=== PATIENT | female | born 1990 | race American Indian/Alaskan Native ===

== ENCOUNTER 2021-01-14 11:39 | Emergency (ER) | payer OTHER ==
[2021-01-14 12:10] VITALS: BP 131/104
--- NOTE | 2021-01-14 13:12 | Event Note ---
ED Screening Note Date of service: 01/14/21 Time: 13:10 ED Screening Note: Female presents to the ER today with complaints of nausea, vomiting, diarrhea and upper abdominal pain. She states that her symptoms have been going on since January 08. Patient states that she has had the symptoms in the past. She states that she was told that she needs to see a GI specialist but at the time she did not have any insurance. She also admits to history of alcohol abuse. She states that she drinks about a bottle and a half of wine every day. She states that she thinks that some of her symptoms are related to alcohol withdrawal. She states that she recently started a job and she has been trying to cut back on the drinking over the past couple days. She reports no seizure activity in the past few days. She denies any SI or HI. This initial assessment/diagnostic orders/clinical plan/treatment(s) is/are subject to change based on patients health status, clinical progression and re- assessment by fellow clinical providers in the ED. Further treatment and workup at subsequent clinical providers discretion. Patient/guardian urged not to elope from the ED as their condition may be serious if not clinically assessed and managed. Initial orders include: Labs
[2021-01-14 14:15] LABS: Alanine Aminotransferase 51 units/L (7-56); Albumin 5.1 g/dL (3.9-5); Blood Urea Nitrogen 10 mg/dL (7-17); Calcium 9.5 mg/dL (8.4-10.2); Hemolysis Index 3
[2021-01-14 14:17] LABS: Hematocrit 40.5 % (30.3-42.9); Mean Corpuscular HGB Conc 35 % (30-34); Mean Corpuscular Volume 86 fl (79-97); Red Blood Count 4.71 M/mm3 (3.65-5.03); Red Cell Distribution Width 13.7 % (13.2-15.2)
[2021-01-14 14:27] LABS: BUN/Creatinine Ratio 17
[2021-01-14 14:53] LABS: Platelet Count 98 K/mm3 (140-440)
[2021-01-14 15:49] LABS: Platelet Clumps Rare; RBC Morphology Normal; Total Cells Counted 100
[2021-01-14] MEDS ORDERED: LORazepam 2 MG/ML VIAL IV ONE (18:11)
[2021-01-14] MEDS ORDERED: SODIUM CHLORIDE 0.9% 1000 ML 1,000 ML IV ONE (18:11)
[2021-01-14 18:30] LABS: Bilirubin,Urine NEG (Negative); Blood,Urine NEG (Negative); Color,Urine Yellow (Yellow); Protein,Urine <15 mg/dL mg/dL (Negative)
[2021-01-14 18:38] LABS: Amphetamine Screen,Urine Negative; Benzodiazepines Screen,Urine Negative; Cannabinoid Screen,Urine Negative; Cocaine Screen,Urine Negative; Methadone Screen,Urine Negative; Opiate Screen,Urine Negative
--- NOTE | 2021-01-14 18:57 | Emergency Department Report ---
ED N/V/D HPI - General Chief complaint: Nausea/Vomiting/Diarrhea Stated complaint: NAUSEA,VOMITING LIGHT HEADED Time Seen by Provider: 01/14/21 12:58 Source: patient Mode of arrival: Ambulatory Limitations: No Limitations - History of Present Illness Initial comments: Female presents to the ER today with complaints of nausea, vomiting, diarrhea and upper abdominal pain. She states that her symptoms have been going on since January 08. Patient states that she has had the symptoms in the past. She states that she was told that she needs to see a GI specialist but at the time she did not have any insurance. She also admits to history of alcohol abuse. She states that she drinks about a bottle and a half of wine every day. She states that she thinks that some of her symptoms are related to alcohol withdrawal. She states that she recently started a job and she has been trying to cut back on the drinking over the past couple days. She reports no seizure activity in the past few days. She denies any SI or HI. MD complaint: nausea, vomiting Onset/Timin -: week(s) Description of Vomiting: food contents Location: epigastric Radiation: none Severity: moderate Quality: stabbing Consistency: intermittent Improves with: none Worsens with: eating Context: alcohol abuse Associated Symptoms: malaise, nausea/vomiting. denies: chest pain, cough, diaphoresis, fever/chills, headaches, loss of appetite, shortness of breath, syncope, weakness - Related Data Previous Rx's Medication Instructions Recorded Last Taken Type LORazepam [Ativan] 0.5 mg PO Q12H PRN #10 tablet 01/14/21 Unknown Rx Allergies Allergy/AdvReac Type Severity Reaction Status Date / Time Sulfa (Sulfonamide Allergy Hives Verified 01/14/21 12:05 Antibiotics) ED Review of Systems ROS: Stated complaint: NAUSEA,VOMITING LIGHT HEADED Other details as noted in HPI Comment: All other systems reviewed and negative ED Past Medical Hx - Past Medical History Previous Medical History?: No - Surgical History Past Surgical History?: No - Social History Smoking Status: Current Every Day Smoker Substance Use Type: Alcohol - Medications Home Medications: Home Medications Medication Instructions Recorded Confirmed Last Taken Type LORazepam [Ativan] 0.5 mg PO Q12H PRN #10 tablet 01/14/21 Unknown Rx ED Physical Exam - General Limitations: No Limitations General appearance: alert, in no apparent distress - Head Head exam: Present: atraumatic, normocephalic - Eye Eye exam: Present: normal appearance - ENT ENT exam: Present: normal exam, mucous membranes moist - Neck Neck exam: Present: normal inspection, full ROM - Respiratory Respiratory exam: Present: normal lung sounds bilaterally. Absent: chest wall tenderness, accessory muscle use - Cardiovascular Cardiovascular Exam: Present: regular rate - GI/Abdominal GI/Abdominal exam: Present: soft. Absent: distended, tenderness, guarding - Extremities Exam Extremities exam: Present: normal inspection - Back Exam Back exam: Present: normal inspection - Neurological Exam Neurological exam: Present: alert, oriented X3, normal gait - Psychiatric Psychiatric exam: Present: normal affect, normal mood - Skin Skin exam: Present: warm, dry, intact, normal color. Absent: rash ED Course Vital Signs 01/14/21 12:06 Temperature 98.2 F Pulse Rate 90 Respiratory 18 Rate Blood Pressure 131/104 O2 Sat by Pulse 98 Oximetry ED Medical Decision Making - Lab Data Result diagrams: 01/14/21 13:26 01/14/21 13:26 Laboratory Results - last 24 hr 01/14/21 01/14/21 01/14/21 13:26 13:26 13:26 WBC 2.9 L RBC 4.71 Hgb 14.0 Hct 40.5 MCV 86 MCH 30 MCHC 35 H RDW 13.7 Plt Count 98 L Baso % (Auto) Candy Maker Add Manual Diff Complete Total Counted 100 Seg Neuts % (Manual) 61.0 Lymphocytes % (Manual) 29.0 Monocytes % (Manual) 5.0 Eosinophils % (Manual) 4.0 Basophils % (Manual) 1.0 Nucleated RBC % Not Reportable Seg Neutrophils # Man 1.8 Band Neutrophils # 0.0 Lymphocytes # (Manual) 0.8 L Abs React Lymphs (Man) 0.0 Monocytes # (Manual) 0.1 Eosinophils # (Manual) 0.1 Basophils # (Manual) 0.0 Metamyelocytes # 0.0 Myelocytes # 0.0 Promyelocytes # 0.0 Blast Cells # 0.0 WBC Morphology Not Reportable Hypersegmented Neuts Not Reportable Hyposegmented Neuts Not Reportable Hypogranular Neuts Not Reportable Smudge Cells Not Reportable Toxic Granulation Not Reportable Toxic Vacuolation Not Reportable Dohle Bodies Not Reportable Pelger-Huet Anomaly Not Reportable Marcial Rods Not Reportable Platelet Estimate Not Reportable Clumped Platelets Rare Plt Clumps, EDTA Not Reportable Large Platelets Not Reportable Giant Platelets Not Reportable Platelet Satelliting Not Reportable Plt Morphology Comment Not Reportable RBC Morphology Normal Dimorphic RBCs Not Reportable Polychromasia Not Reportable Hypochromasia Not Reportable Poikilocytosis Not Reportable Anisocytosis Not Reportable Microcytosis Not Reportable Macrocytosis Not Reportable Spherocytes Not Reportable Pappenheimer Bodies Not Reportable Sickle Cells Not Reportable Target Cells Not Reportable Tear Drop Cells Not Reportable Ovalocytes Not Reportable Helmet Cells Not Reportable [place] Bodies Not Reportable [place]may Rings Not Reportable [place] Cells Not Reportable Bite Cells Not Reportable Crenated Cell Not Reportable Elliptocytes Not Reportable Acanthocytes (Spur) Not Reportable Rouleaux Not Reportable Hemoglobin C Crystals Not Reportable Schistocytes Not Reportable Malaria parasites Not Reportable Kalpesh Bodies Not Reportable Hem Pathologist Commnt No Sodium 140 Potassium 4.9 Chloride 99.6 Carbon Dioxide 23 Anion Gap 22 BUN 10 Creatinine 0.6 Estimated GFR > 60 BUN/Creatinine Ratio 17 Glucose 83 Calcium 9.5 Total Bilirubin 0.40 AST 87 H ALT 51 Alkaline Phosphatase 50 Total Protein 8.3 H Albumin 5.1 H Albumin/Globulin Ratio 1.6 HCG, Qual Urine Color Urine Turbidity Urine pH Ur Specific [place] Urine Protein Urine Glucose (UA) Urine Ketones Urine Blood Urine Nitrite Urine Bilirubin Urine Urobilinogen Ur Leukocyte Esterase Urine WBC (Auto) Urine RBC (Auto) U Epithel Cells (Auto) Urine Opiates Screen Urine Methadone Screen Ur Barbiturates Screen Ur Phencyclidine Scrn Ur Amphetamines Screen U Benzodiazepines Scrn Urine Cocaine Screen U Marijuana (THC) Screen Drugs of Abuse Note Plasma/Serum Alcohol 0.32 H 01/14/21 01/14/21 01/14/21 13:26 18:11 18:11 WBC RBC Hgb Hct MCV MCH MCHC RDW Plt Count Baso % (Auto) Add Manual Diff Total Counted Seg Neuts % (Manual) Lymphocytes % (Manual) Monocytes % (Manual) Eosinophils % (Manual) Basophils % (Manual) Nucleated RBC % Seg Neutrophils # Man Band Neutrophils # Lymphocytes # (Manual) Abs React Lymphs (Man) Monocytes # (Manual) Eosinophils # (Manual) Basophils # (Manual) Metamyelocytes # Myelocytes # Promyelocytes # Blast Cells # WBC Morphology Hypersegmented Neuts Hyposegmented Neuts Hypogranular Neuts Smudge Cells Toxic Granulation Toxic Vacuolation Dohle Bodies Pelger-Huet Anomaly Marcial Rods Platelet Estimate Clumped Platelets Plt Clumps, EDTA Large Platelets Giant Platelets Platelet Satelliting Plt Morphology Comment RBC Morphology Dimorphic RBCs Polychromasia Hypochromasia Poikilocytosis Anisocytosis Microcytosis Macrocytosis Spherocytes Pappenheimer Bodies Sickle Cells Target Cells Tear Drop Cells Ovalocytes Helmet Cells [place] Bodies Ismay Rings [place] Cells Bite Cells Crenated Cell Elliptocytes Acanthocytes (Spur) Rouleaux Hemoglobin C Crystals Schistocytes Malaria parasites Kalpesh Bodies Hem Pathologist Commnt Sodium Potassium Chloride Carbon Dioxide Anion Gap BUN Creatinine Estimated GFR BUN/Creatinine Ratio Glucose Calcium Total Bilirubin AST ALT Alkaline Phosphatase Total Protein Albumin Albumin/Globulin Ratio HCG, Qual Negative Urine Color Yellow Urine Turbidity Clear Urine pH 7.0 Ur Specific [place] 1.017 Urine Protein <15 mg/dl Urine Glucose (UA) Neg Urine Ketones Neg Urine Blood Neg Urine Nitrite Neg Urine Bilirubin Neg Urine Urobilinogen 2.0 Ur Leukocyte Esterase Tr Urine WBC (Auto) 1.0 Urine RBC (Auto) 2.0 U Epithel Cells (Auto) 3.0 Urine Opiates Screen Negative Urine Methadone Screen Negative Ur Barbiturates Screen Negative Ur Phencyclidine Scrn Negative Ur Amphetamines Screen Negative U Benzodiazepines Scrn Negative Urine Cocaine Screen Negative U Marijuana (THC) Screen Negative Drugs of Abuse Note Disclamer Plasma/Serum Alcohol - Medical Decision Making Female presents to the ER today with complaints of nausea, vomiting, diarrhea and upper abdominal pain. She states that her symptoms have been going on since January 08. Patient states that she has had the symptoms in the past. She states that she was told that she needs to see a GI specialist but at the time she did not have any insurance. She also admits to history of alcohol abuse. She states that she drinks about a bottle and a half of wine every day. She states that she thinks that some of her symptoms are related to alcohol withdrawal. She states that she recently started a job and she has been trying to cut back on the drinking over the past couple days. She reports no seizure activity in the past few days. She denies any SI or HI. Patient is interested in a detox program. Critical care attestation.: If time is entered above; I have spent that time in minutes in the direct care of this critically ill patient, excluding procedure time. ED Disposition Clinical Impression: Alcohol abuse Nausea and vomiting Qualifiers: Vomiting type: unspecified Vomiting Intractability: intractable Qualified Code(s): R11.2 - Nausea with vomiting, unspecified Disposition: DC-01 TO HOME OR SELFCARE Is pt being admited?: No Does the pt Need Aspirin: No Condition: Stable Instructions: Alcohol Use Disorder, Nausea, Adult, [id number] Additional Instructions: Please follow-up at the detox center or [facility] for s ubstance abuse. Take the Ativan as needed for the agitation or you trying to get off the alcohol. Please be sure to increase your fluid intake. I have Yoly that she would do well. Prescriptions: LORazepam [Ativan] 0.5 mg PO Q12H PRN #10 tablet PRN Reason: Alcohol Withdrawal Referrals: PRIMARY CARE, [Primary Care Provider] - 3-5 Days [facility] [Outside] - 3-5 Days [facility] [Other] - 3-5 Days Forms: Work/School Release Form(ED)
== END 2021-01-14 22:20 | disposition home or self-care (01) ==
LOC: ED 11:39
DX: F10.10 Alcohol abuse, uncomplicated (principal); R11.2 Nausea with vomiting, unspecified; F17.200 Nicotine dependence, unspecified, uncomplicated; Z79.899 Other long term (current) drug therapy; Z88.2 Allergy status to sulfonamides
CPT/HCPCS: 36415; 80053; 80307; 81001; 84703; 85007; 85025; 96361; 96374; 99283; J2060; J7030; 80320; G0480